=== PATIENT | female | born 1995 | race African-American/Black ===

== ENCOUNTER 2024-02-08 12:52 | Observation (INO) | payer OTHER ==
[~2024-02-08] VITALS: Ht 177.8 cm; Wt 112.5 kg
== END 2024-02-08 14:38 | disposition home or self-care (01) ==
LOC: LDRP 12:52 → UNDOADMOB 12:52 → LDRP 13:15
PROVIDERS: ADMIT Obstetrics & Gynecology; ATTEND Obstetrics & Gynecology
DX: O24.419 Gestational diabetes mellitus in pregnancy, unspecified control (principal); Z3A.33 33 weeks gestation of pregnancy
CPT/HCPCS: 59025; 76818; 81002; 82948; 82962; 94760; G0378

== ENCOUNTER 2024-02-12 08:05 | Observation (INO) | payer OTHER | END 2024-02-12 10:02 | disposition home or self-care (01) | LOC: LDRP 08:05 → UNDOADMOB 08:05 → LDRP 08:17 | PROVIDERS: ADMIT Obstetrics & Gynecology; ATTEND Obstetrics & Gynecology | DX: O24.419 Gestational diabetes mellitus in pregnancy, unspecified control (principal); Z3A.34 34 weeks gestation of pregnancy | CPT/HCPCS: 59025; 76818; 81002; 82948; 82962; 94760; G0378 ==

== ENCOUNTER 2024-02-15 08:47 | Observation (INO) | payer OTHER ==
[2024-02-19] MEDS ORDERED: PREN-96 PO (10:57)
== END 2024-02-19 11:08 | disposition home or self-care (01) ==
LOC: LDRP 02-19 09:00 → UNDOADMOB 02-19 09:00 → LDRP 02-19 09:19
PROVIDERS: ADMIT Obstetrics & Gynecology; ATTEND Obstetrics & Gynecology
DX: O24.419 Gestational diabetes mellitus in pregnancy, unspecified control (principal); Z3A.35 35 weeks gestation of pregnancy
CPT/HCPCS: 59025; 76818; 81002; 82948; 82962; 94760; G0378

== ENCOUNTER → 2024-02-22 | Outpatient (CLI) | payer OTHER ==
[~2024-02-22] MED LIST: PREN-96 PO
[2024-02-22 11:11] LABS: Basophils # (auto) 0 10 ^3/uL (0-0.2); Eosinophils # (auto) 0.1 10 ^3/uL (0-0.8); Lymphocytes # (auto) 1.6 10 ^3/uL (0.4-5.4); Mean Corpuscular Hemoglobin 24.5 pg (28.0-32.0); Neutrophils # (auto) 6.7 10 ^3/uL (1.6-8.6)
[2024-02-22 11:14] LABS: Basophils % (auto) 0.4 % (0.0-2.0); Eosinophils % (auto) 1.1 % (0.0-7.0); Hematocrit 32.5 % (36.0-46.0); Hemoglobin 10.5 g/dL (12.2-16.2); Lymphocytes % (auto) 17.3 % (10.0-50.0); Mean Corpuscular Hgb Conc. 32.4 g/dL (32.0-36.0); Mean Corpuscular Volume 75.6 fL (80.0-100.0); Monocytes # (auto) 0.6 10 ^3/uL (0-1.3); Monocytes % (auto) 6.4 % (0.0-12.0); Neutrophils % (auto) 74.8 % (37.0-80.0)
[2024-02-22 11:16] LABS: Red Cell Distribution Width 22.4 % (11.8-14.3)
[2024-02-23 07:07] LABS: RPR Non Reactive (Non Reactive)
[2024-02-24 05:05] LABS: Chlamydia Trachomatis, NAA Negative (Negative); Neisseria gonorrhoeae, NAA Negative (Negative)
== END | disposition home or self-care (01) ==
LOC: LAB 10:38
PROVIDERS: ATTEND Obstetrics & Gynecology
DX: Z34.80 Encounter for supervision of other normal pregnancy, unspecified trimester (principal); Z3A.00 Weeks of gestation of pregnancy not specified
CPT/HCPCS: 36415; 83036; 85025; 86592

== ENCOUNTER 2024-02-26 11:28 | Observation (INO) | payer OTHER ==
[2024-02-26] MEDS ORDERED: ACYC200C22 PO (12:12)
== END 2024-02-26 13:50 | disposition home or self-care (01) ==
LOC: UNDOADMOB 11:28 → LDRP 11:28 → UNDODISOB 13:50
PROVIDERS: ADMIT Obstetrics & Gynecology; ATTEND Obstetrics & Gynecology
DX: O24.419 Gestational diabetes mellitus in pregnancy, unspecified control (principal); Z3A.36 36 weeks gestation of pregnancy
CPT/HCPCS: 59025; 76818; 81002; 82948; 82962; 94760; G0378

== ENCOUNTER 2024-03-04 11:41 | Observation (INO) | payer OTHER ==
[~2024-03-04 11:41] MED LIST changes: +ACYC200C22 PO
== END 2024-03-04 14:05 | disposition home or self-care (01) ==
LOC: LDRP 11:41
PROVIDERS: ADMIT Obstetrics & Gynecology; ATTEND Obstetrics & Gynecology
DX: O24.419 Gestational diabetes mellitus in pregnancy, unspecified control (principal); Z3A.37 37 weeks gestation of pregnancy
CPT/HCPCS: 59025; 76818; 81002; 82948; 82962; 94760; G0378

== ENCOUNTER 2024-03-11 10:17 | Observation (INO) | payer OTHER | END 2024-03-11 13:13 | disposition home or self-care (01) | LOC: UNDOADMOB 10:17 → LDRP 10:17 | PROVIDERS: ADMIT Obstetrics & Gynecology; ATTEND Obstetrics & Gynecology | DX: O24.419 Gestational diabetes mellitus in pregnancy, unspecified control (principal); O09.33 Supervision of pregnancy with insufficient antenatal care, third trimester; Z3A.38 38 weeks gestation of pregnancy | CPT/HCPCS: 59025; 76818; 81002; 82948; 82962; 94760; G0378 ==

== ENCOUNTER 2024-03-18 11:20 | Observation (INO) | payer OTHER | END 2024-03-18 13:10 | disposition home or self-care (01) | LOC: LDRP 11:20 → UNDOADMOB 11:20 → LDRP 11:31 → UNDODISOB 13:10 | PROVIDERS: ADMIT Obstetrics & Gynecology; ATTEND Obstetrics & Gynecology | DX: O24.420 Gestational diabetes mellitus in childbirth, diet controlled (principal); Z3A.39 39 weeks gestation of pregnancy; Z79.899 Other long term (current) drug therapy | CPT/HCPCS: 59025; 76818; 81002; 82948; 82962; 94760; G0378 ==

== ENCOUNTER 2024-03-21 10:57 | Observation (INO) | payer OTHER | END 2024-03-21 12:20 | disposition home or self-care (01) | LOC: LDRP 10:57 | PROVIDERS: ADMIT Obstetrics & Gynecology; ATTEND Obstetrics & Gynecology | DX: O24.419 Gestational diabetes mellitus in pregnancy, unspecified control (principal); Z3A.39 39 weeks gestation of pregnancy | CPT/HCPCS: 59025; 76818; 81002; 82948; 82962; 94760; G0378 ==

== ENCOUNTER 2024-03-23 06:07 | Observation (INO) | payer OTHER | END 2024-03-23 16:35 | disposition home or self-care (01) | LOC: LDRP 15:01 | PROVIDERS: ADMIT Obstetrics & Gynecology; ATTEND Obstetrics & Gynecology | DX: O41.93X0 Disorder of amniotic fluid and membranes, unspecified, third trimester, not applicable or unspecified (principal); O60.03 Preterm labor without delivery, third trimester; Z3A.39 39 weeks gestation of pregnancy; Z79.899 Other long term (current) drug therapy; Z98.890 Other specified postprocedural states | CPT/HCPCS: 59025; 76818; 81002; 82948; 82962; 94760; G0378 ==

== ENCOUNTER 2024-03-25 05:56 | Inpatient (IN) | payer OTHER ==
[~2024-03-25] VITALS: Ht 175.3 cm; Wt 113.4 kg
[2024-03-25] VITALS (16 sets, daily range): BP systolic 105–134; BP diastolic 58–96; PULSE 64–98; RESP 16–18; TEMP 97.7–98.3; O2SAT 95–99
[2024-03-25] MEDS ORDERED: BUTORPHANOL TARTRATE 2 MG/1 ML VIAL IV PRN ×2 (06:15)
[2024-03-25] MEDS ORDERED: LIDOCAINE 2%HCL (LOCAL ANESTH.) INJ 20ML MDV IJ PRN (06:15)
[2024-03-25] MEDS ORDERED: PENICILLIN G POT 5MIL/D5 50ML 50 ML IV ONE (06:15)
[2024-03-25] MEDS: ACCU-CHEK COMFORT CURVE STRIP VI SCH (07:00)
[2024-03-25 07:03] LABS: Basophils # (auto) 0 10 ^3/uL (0-0.2); Eosinophils # (auto) 0.1 10 ^3/uL (0-0.8); Hemoglobin 10.4 g/dL (12.2-16.2); Monocytes # (auto) 0.5 10 ^3/uL (0-1.3); Neutrophils # (auto) 5.6 10 ^3/uL (1.6-8.6); Nucleated Red Blood Cells % 0.1 %
[2024-03-25 07:05] LABS: Basophils % (auto) 0.2 % (0.0-2.0); Eosinophils % (auto) 1.2 % (0.0-7.0); Lymphocytes # (auto) 1.5 10 ^3/uL (0.4-5.4); Lymphocytes % (auto) 19.5 % (10.0-50.0); Mean Corpuscular Hemoglobin 26.1 pg (28.0-32.0); Mean Corpuscular Hgb Conc. 32.4 g/dL (32.0-36.0); Mean Corpuscular Volume 80.4 fL (80.0-100.0); Monocytes % (auto) 6.3 % (0.0-12.0); Neutrophils % (auto) 72.8 % (37.0-80.0); Red Blood Cells 3.98 10^6/uL (4.0-5.20); White Blood Cell 7.7 10^3/uL (4.4-10.8)
[2024-03-25 07:32] LABS: INR 0.92 (0.9-1.15); Partial Thromboplastin Time 28.9 SEC (24.5-34.5); Prothrombin Time 9.8 sec (9.3-11.8)
[2024-03-25] MEDS: LACTATED RINGER'S 1,000 ML IV SCH (07:32)
[2024-03-25 07:39] LABS: Alanine Aminotransferase 10 U/L (7-40); Albumin 3.7 g/dL (3.2-4.8); Alkaline Phosphatase 126 U/L (46-116); Anion Gap 8 (5-15); Aspartate Aminotransferase 17 U/L (13-40); Bilirubin, Total 0.4 mg/dL (0.2-1.0); Blood Urea Nitrogen 9 mg/dL (9-23); Carbon Dioxide 20 mmol/L (20-30); Chloride 110 mmol/L (98-107); Glucose 119 mg/dL (74-106); Potassium 3.8 mmol/L (3.5-5.1); Sodium 138 mmol/L (136-145); Total Protein 6.4 g/dL (5.7-8.2)
[2024-03-25] MEDS: WITCH HAZEL-GLYCERIN PAD TOP PRN (08:00)
[2024-03-25] MEDS: DERMOPLAST 60ML BOTTLE TOP PRN (08:00)
[2024-03-25] MEDS: PHISODERM TOP SOLN 240ML BTL TOP PRN (08:00)
[2024-03-25] MEDS: LACT. RINGERS/OXYTOCIN 20UNITS 500 ML IV ONE ×2 (08:15→08:45)
[2024-03-25] MEDS ORDERED: miSOPROStol 100 mcg TAB SL PRN (08:15)
[2024-03-25] MEDS ORDERED: METHYLERGONOVINE MALEATE 0.2 MG/ML AMP IM PRN (08:15)
[2024-03-25] MEDS ORDERED: CARBOPROST TROMETHAMINE 250 MCG/1ML VIAL IM PRN (08:15)
[2024-03-25] MEDS ORDERED: miSOPROStol 100 mcg TAB PR PRN (08:15)
[2024-03-25] MEDS: miSOPROStol 50 MCG per PRE-CUT 1/2 TAB PO PRN (08:30)
[2024-03-25 08:58] LABS: Urine Bacteria None Seen /hpf (None Seen)
[2024-03-25] MEDS: TERBUTALINE SULFATE 1 MG/ML 1ML VIAL SC ONE (09:09)
[2024-03-25 09:20] LABS: Urine Blood Negative /uL (Negative); Urine Clarity Clear (Clear); Urine Color Light-Yellow (Yellow); Urine Mucus FEW (None Seen); Urine Protein, UAD TRACE (Negative); Urine Specific Gravity 1.028 (1.001-1.035); Urine Urobilinogen Normal (Negative); Urine WBC <1 /hpf (0 - 5)
[2024-03-25 09:33] LABS: Amphetamine Screen, Urine Neg (NEGATIVE); Barbiturate Scree,Urine Neg (NEGATIVE); Benzodiazephine Screen, Urine Neg (NEGATIVE); Cannabinoid Screen, Urine Neg (NEGATIVE); Cocaine Screen, Urine Neg (NEGATIVE); Opiate Scree,Urine Neg (NEGATIVE); Phencyclidine Screen, Urine Neg (NEGATIVE)
[2024-03-25] MEDS ORDERED: MORPHINE SULF PF 5 MG/10 ML VIAL ONE (09:36)
[2024-03-25] MEDS ORDERED: fentaNYL CITRATE 100 MCG/2 ML VL ONE (09:36)
[2024-03-25] MEDS ORDERED: ONDANSETRON HCL 4 MG/2 ML VIAL ONE (09:38)
[2024-03-25] MEDS ORDERED: oxyTOCIN 10 UNIT/ML 10ML VIAL ONE (09:38)
[2024-03-25] MEDS ORDERED: DexAMETHasone SOD PHOS 10MG/1ML VIAL INJ ONE (09:40)
[2024-03-25] MEDS: ceFAZolin 2 GM/D5W50ml 50 ML IV ONE (09:44)
[2024-03-25] MEDS: DIPHENOXYLATE W/ATROPINE 2.5 MG TAB PO SCH (10:00)
[2024-03-25] MEDS ORDERED: PENICILLIN G POTASSIUM 2,500,000 UNITS in D5W 5% 50 ML IV SCH (10:15)
[2024-03-25] MEDS ORDERED: SODIUM CHLORIDE LOCK 10 ML ONE (10:16)
[2024-03-25] MEDS ORDERED: PHENYLEPHRINE HCL 10 MG/ML VL ONE (10:16)
[2024-03-25] MEDS ORDERED: ONDANSETRON HCL 4 MG/2 ML VIAL IV PRN ×2 (10:30→11:15)
[2024-03-25] MEDS: LACT. RINGERS/OXYTOCIN 20UNITS 1,000 ML IV ONE (10:30)
[2024-03-25] MEDS ORDERED: ceFAZolin 1GM/50ML 50 ML IV SCH (10:30)
[2024-03-25] MEDS: NALBUPHINE HCL 10 MG/1ml INJECTION IV ONE (11:15)
[2024-03-25] MEDS ORDERED: HYDROmorphone HCL 2 MG/ML VL/or syr IV PRN (11:15)
[2024-03-25] MEDS ORDERED: NALOXONE HCL 0.4 MG/ML VIAL IV PRN (11:15)
[2024-03-25] MEDS: diphenhdrAMINE HCL 50 MG/1 ML VL IV PRN (12:34)
[2024-03-25] MEDS: ceFAZolin 1GM/50ML 50 ML IV SCH (17:36)
[2024-03-25 22:19] LABS: Basophils # (auto) 0 10 ^3/uL (0-0.2); Basophils % (auto) 0.3 % (0.0-2.0); Eosinophils # (auto) 0 10 ^3/uL (0-0.8); Hematocrit 31.7 % (36.0-46.0); Hemoglobin 10.1 g/dL (12.2-16.2); Lymphocytes % (auto) 7.6 % (10.0-50.0); Mean Corpuscular Hemoglobin 25.5 pg (28.0-32.0); Mean Corpuscular Volume 79.8 fL (80.0-100.0); Monocytes # (auto) 0.4 10 ^3/uL (0-1.3); Monocytes % (auto) 3.5 % (0.0-12.0); Neutrophils # (auto) 11.3 10 ^3/uL (1.6-8.6); Neutrophils % (auto) 88.6 % (37.0-80.0); Red Blood Cells 3.97 10^6/uL (4.0-5.20); Red Cell Distribution Width 24.4 % (11.8-14.3); White Blood Cell 12.7 10^3/uL (4.4-10.8)
[2024-03-26] VITALS (14 sets, daily range): BP systolic 110–132; BP diastolic 61–80; PULSE 82–109; RESP 16–18; TEMP 98.2–98.8; O2SAT 95–99
[2024-03-26] MEDS: ACETAMINOPHEN IV 1000 MG/100ML (10MG/ML) IV PRN (05:56)
[2024-03-26 06:58] LABS: Basophils # (auto) 0 10 ^3/uL (0-0.2); Eosinophils # (auto) 0 10 ^3/uL (0-0.8); Eosinophils % (auto) 0.2 % (0.0-7.0); Hemoglobin 9.8 g/dL (12.2-16.2); Lymphocytes # (auto) 1.8 10 ^3/uL (0.4-5.4)
[2024-03-26 07:02] LABS: Basophils % (auto) 0.2 % (0.0-2.0); Hematocrit 29.9 % (36.0-46.0); Lymphocytes % (auto) 15.8 % (10.0-50.0); Mean Corpuscular Hgb Conc. 32.6 g/dL (32.0-36.0); Mean Corpuscular Volume 79.6 fL (80.0-100.0); Monocytes # (auto) 0.7 10 ^3/uL (0-1.3); Monocytes % (auto) 5.8 % (0.0-12.0); Neutrophils # (auto) 8.9 10 ^3/uL (1.6-8.6); Nucleated Red Blood Cells % 0.1 %; Red Blood Cells 3.76 10^6/uL (4.0-5.20); White Blood Cell 11.5 10^3/uL (4.4-10.8)
[2024-03-26 07:03] LABS: Red Cell Distribution Width 24.2 % (11.8-14.3)
[2024-03-26] MEDS ORDERED: DOCU-94 PO (08:03)
[2024-03-26] MEDS ORDERED: IBUP-1456 PO (08:03)
[2024-03-26] MEDS ORDERED: HYDR-4902 PO (08:03)
[2024-03-26 08:07] LABS: RPR Non Reactive (Non Reactive)
[2024-03-26] MEDS: SIMETHICONE 80 MG CHEWABLE TABLET PO SCH (12:16)
[2024-03-26] MEDS: HYDROcodone-ACET 5/325MG TAB PO PRN ×2 (13:44→21:31)
[2024-03-26] MEDS: DOCUSATE SOD 100 MG CAP PO SCH (21:31)
[2024-03-26] MEDS ORDERED: PREN1TAB48 PO (21:45)
[2024-03-27] MEDS: IBUPROFEN 800 MG TAB PO PRN (01:50)
[2024-03-27 03:05] VITALS: BP 110/58; PULSE 76; RESP 16; TEMP 98.4; O2SAT 95
[2024-03-27 07:00] VITALS: BP 123/79; PULSE 98; RESP 16; TEMP 99; O2SAT 95; O2SAT 97
[2024-03-27] MEDS: DOCUSATE CALCIUM 240 MG CAP PO SCH (09:31)
[2024-03-27 09:58] VITALS: TEMP 37.2
[2024-03-27] MEDS: TETANUS-DIPTH-ACEL PERTUSSIS 0.5ML SYR Tdap IM ONE (10:57)
[2024-03-27 11:00] VITALS: BP 123/79; PULSE 95; RESP 18; TEMP 98.5; O2SAT 97
== END 2024-03-27 13:04 | disposition home or self-care (01) | DRG 788 ==
LOC: LDRP 05:56
PROVIDERS: ADMIT Obstetrics & Gynecology; ATTEND Obstetrics & Gynecology
PROC: 10D00Z1 Extraction of Products of Conception, Low, Open Approach (ICD-10-PCS; principal; 2024-03-25 09:54)
DX: O24.420 Gestational diabetes mellitus in childbirth, diet controlled (principal); O99.824 Streptococcus B carrier state complicating childbirth; O69.81X0 Labor and delivery complicated by cord around neck, without compression, not applicable or unspecified; O76 Abnormality in fetal heart rate and rhythm complicating labor and delivery; O77.0 Labor and delivery complicated by meconium in amniotic fluid; O99.214 Obesity complicating childbirth; O99.02 Anemia complicating childbirth; D50.9 Iron deficiency anemia, unspecified; E66.01 Morbid (severe) obesity due to excess calories; Z37.0 Single live birth; Z3A.40 40 weeks gestation of pregnancy
CPT/HCPCS: 36415; 59025; 80053; 80307; 81001; 82948; 82962; 85025; 85610; 85730; 86592; 86803; 86850; 86900; 86901; 90715; 94760; 94762; 96360; 96361; 96374; G0378; J0131; J1100; J2405; J2590; J7060